=== PATIENT | male | born 2000 | race African-American/Black ===

== ENCOUNTER 2019-02-07 00:40 | Emergency (ER) | payer OTHER ==
[2019-02-07] MEDS ORDERED: DIPHTH,PERTUSS(ACELL),TET 0.5 ML DISP.SYRIN IM ONE ×2 (00:54→01:18)
[2019-02-07] MEDS ORDERED: AMOX TR/POT CLAV 875MG/125MG TABLETS (FP) PO ONE (01:04)
[2019-02-07 01:09] VITALS: BP 127/78; PULSE 95; TEMP 98.4; BMI 31.5
[2019-02-07] MEDS ORDERED: AMPICILLIN NA/SULBACTAM NA 3 GM in SODIUM CHLORIDE 100 ML IVPB ONE (01:19)
[2019-02-07] MEDS ORDERED: NAPROXEN 500 MG TABLET (FP) PO ONE (01:34)
[2019-02-07] MEDS ORDERED: NAPROXEN 500 MG TABLET (FP) ONE (01:36)
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
== END 2019-02-07 02:22 | disposition home or self-care (01) ==
LOC: JER 00:40
PROC: 3E0234Z Introduction of Serum, Toxoid and Vaccine into Muscle, Percutaneous Approach (ICD-10-PCS; principal; 2019-02-07)
DX: S61.451A Open bite of right hand, initial encounter (principal); W50.3XXA Accidental bite by another person, initial encounter; Y93.89 Activity, other specified; Y92.198 Other place in other specified residential institution as the place of occurrence of the external cause; Y99.0 Civilian activity done for income or pay
CPT/HCPCS: 73130-TC-RT-FY; 90715; 99281-25

== ENCOUNTER 2019-11-19 15:39 | Emergency (ER) | payer BC, OTHER ==
[2019-11-19 15:58] VITALS: BP 137/78; PULSE 79; TEMP 98.9; BMI 31.3
[2019-11-19] MEDS ORDERED: MAG HYDROX/AL HYDROX/SIMETH 30 ML UNIT-DOSE CUP PO ONE (16:27)
[2019-11-19] MEDS ORDERED: FAMOTIDINE 20 MG/50 ML IVPB 20 MG/50 ML MG IVPB ONE ×2 (16:27→16:52)
[2019-11-19] MEDS ORDERED: METOCLOPRAMIDE HCL INJECTION 10 MG/2 ML VIAL IVPB ONE (16:27)
[2019-11-19] MEDS ORDERED: LACTATED RINGERS SOLUTION 1000 ML INFUS.BAG IV ONE (16:28)
--- NOTE | 2019-11-19 16:34 | PDOC ---
History of Present Illness - General Chief Complaint: Pain Stated Complaint: ABD PAIN/VOMITING Time Seen by Provider: 11/19/19 16:14 History Source: Patient Exam Limitations: Clinical Condition - History of Present Illness Initial Comments: 11/19/19 16:29 Patient with no significant past medical history present with complaint of 3-day history of epigastric pain, nausea, vomiting and diarrhea status post eating fast food 3 days ago. Patient reported now having suprapubic abdominal pain with less pain to epigastric region. Denies bloody stool or mucus in stool. Patient has not taken anything for symptoms. Denies fever, chills, body aches, weakness, chest pain, shortness of breath. Denies any other symptoms Is this a multiple visit Asthma Patient?: No Timing/Duration: other (3 days) Past History - Medical History Allergies/Adverse Reactions: Allergies Allergy/AdvReac Type Severity Reaction Status Date / Time No Known Allergies Allergy Verified 02/07/19 00:56 Home Medications: Ambulatory Orders Albuterol Sulfate Inhaler - [Ventolin HFA Inhaler -] 2 inh PO Q6H #1 inh 02/26/15 Amox-Tr/K Cl [Augmentin - 250Mg Tablet] 1 tab PO BID 5 Days #10 tablet 02/07/19 Naproxen [Naprosyn -] 500 mg PO BID PRN 7 Days #14 tablet 02/07/19 Famotidine [Pepcid -] 40 mg PO DAILY #7 tablet 11/19/19 Mag Hydrox/Aluminum Hyd/Simeth [Maalox Advanced Suspension] 30 ml PO Q8H PRN #1 bottle 11/19/19 Ondansetron [Zofran *Odt*] 4 mg SL Q8H PRN #12 od.tablet 11/19/19 COPD: No - Immunization History Immunization Up to Date: Yes - Psycho-Social/Smoking History Smoking Status: No Smoking History: Never smoked Number of Cigarettes Smoked Daily: 0 Information on smoking cessation initiated: No - Substance Abuse Hx (Audit-C & DAST Scrn) How often the patient has a drink containing alcohol: Never Score: In Men: 4 or > Positive; In Women: 3 or > Positive: 0 Screen Result (Pos requires Nsg. Audit-10AR): Negative In the last yr the pt used illegal drug/Rx for NonMed reason: No Score: Yes response is considered Positive: 0 Screen Result (Positive result requires Nsg. DAST-10): Negative Review of Systems - Review of Systems Able to Perform ROS?: Yes Is the patient limited Swiss proficient: No Constitutional: No: Chills, Fever, Malaise HEENTM: No: Symptoms Reported, See HPI, Eye Pain, Blurred Vision, Tearing, Recent change in vision, Double Vision, Cataracts, Ear Pain, Ocular Prothesis, Ear Discharge, Nose Pain, Nose Congestion, Tinnitus, Nose Bleeding, Hearing Loss, Throat Pain, Throat Swelling, Mouth Pain, Dental Problems, Difficulty Swallowing, Mouth Swelling, Other Respiratory: No: Symptoms reported, See HPI, Cough, Orthopnea, Shortness of Breath, SOB with Exertion, SOB at Rest, Stridor, Wheezing, Productive cough, Hemoptysis, Other Cardiac (ROS): No: Symptoms Reported, See HPI, Chest Pain, Edema, Irregular Heart Rate, Lightheadedness, Palpitations, Syncope, Chest Tightness, Other ABD/GI: Yes: Symptoms Reported, See HPI, Diarrhea, Nausea, Vomiting, Abdominal cramping (epigastric and suprapubic pain). No: Abdominal Distended, Abd. Pain w/ defecation, Blood Streaked Bowels, Constipated, Difficulty Swallowing, Poor Appetite, Rectal Bleeding, Indigestion : No: Symptoms Reported, See HPI Musculoskeletal: No: Back Pain All Other Systems: Reviewed and Negative *Physical Exam - Vital Signs Last Vital Signs Temp Pulse Resp BP Pulse Ox 98.9 F 79 16 137/78 99 11/19/19 15:51 11/19/19 15:51 11/19/19 15:51 11/19/19 15:51 11/19/19 15:51 - Physical Exam 11/19/19 16:35 GENERAL: Well developed, well nourished. Awake and alert. No acute distress. HEENT: Normocephalic, atraumatic. PERRLA, EOMI. No conjunctival pallor. Sclera are non-icteric. Moist mucous membranes. Oropharynx is clear. NECK: Supple. Full ROM. CARDIOVASCULAR: Regular rate and rhythm. No murmurs, rubs, or gallops. Distal pulses are 2+ and symmetric. PULMONARY: No evidence of respiratory distress. Lungs clear to auscultation bilaterally. No wheezing, rales or rhonchi. ABDOMINAL: Soft. Mild tenderness to palpation to epigastric and suprapubic region. Non- distended. No rebound or guarding. No organomegaly. Normoactive bowel sounds. MUSCULOSKELETAL Normal range of motion at all joints. SKIN: Warm and dry. Normal capillary refill. No rashes. No jaundice. No cyanosis NEUROLOGICAL: Alert, awake, appropriate. Gait is normal without ataxia. PSYCHIATRIC: Cooperative. Good eye contact. Appropriate mood General Appearance: Yes: Nourished, Appropriately Dressed. No: Apparent Distress ED Treatment Course - LABORATORY CBC & Chemistry Diagram: 11/19/19 17:04 11/19/19 17:04 Medical Decision Making - Medical Decision Making 11/19/19 16:31 Patient with no significant past medical history present with complaint of 3-day history of epigastric pain, nausea, vomiting and diarrhea status post eating fast food 3 days ago. Patient reported now having suprapubic abdominal pain with less pain to epigastric region. Denies bloody stool or mucus in stool. Patient has not taken anything for symptoms. Denies fever, chills, body aches, weakness, chest pain, shortness of breath. Denies any other symptoms Exam significant for mild epigastric and suprapubic tenderness without guarding or rebound otherwise unremarkable exam. Normal cardio and lung exam. Patient afebrile in no acute distress. Patient symptoms likely gastroenteritis versus food poisoning versus cystitis. CBC, CMP and lipase lab ordered. UA and urine culture lab ordered. IV hydration with lactated Ringer's 1 L ordered. Pepcid 20 mg IV, Reglan 10 mg IV and Maalox 30 mL p.o. ordered for abdominal pain. Reassess after labs and imaging. 11/19/19 17:54 CBC lab shows no acute abnormality. UA within normal limit. Chemistry labs are pending. Patient report improvement of pain. Patient symptoms likely gastroenteritis and will be discharged home on Pepcid and Maalox if negative chemistry 11/19/19 18:23 Chemistry lab shows no acute abnormality. Patient asymptomatic now and stable for discharge on Pepcid 40 mg daily for 7 days, Maalox PRN for abdominal discomfort and Zofran PRN for nausea and vomiting with advised to increase fluid intake with GI follow-up as needed Discharge - Discharge Information Problems reviewed: Yes Clinical Impression/Diagnosis: Gastroenteritis, Abdominal pain in male Condition: Stable Disposition: HOME - Admission No - Additional Discharge Information Prescriptions: Mag Hydrox/Aluminum Hyd/Simeth [Maalox Advanced Suspension] 30 ml PO Q8H PRN #1 bottle PRN Reason: abdominal discomfort Famotidine [Pepcid -] 40 mg PO DAILY #7 tablet Ondansetron [Zofran *Odt*] 4 mg SL Q8H PRN #12 od.tablet PRN Reason: nausea - Follow up/Referral Referrals: Elfego Montague MD [Staff Physician] - - Patient Discharge Instructions Patient Printed Discharge Instructions: DI for Viral Gastroenteritis -- Adult Additional Instructions: Your blood work was normal. Your urine lab was normal as well. Your pain is likely from diarrhea from viral gastroenteritis. Take prescribed medication as prescribed for diarrhea abdominal pain. Increase fluid intake. Follow-up with your GI doctor if no improvement in 3 days - Post Discharge Activity
[2019-11-19] MEDS ORDERED: METOCLOPRAMIDE HCL INJECTION 10 MG/2 ML VIAL ONE (16:52)
[2019-11-19] MEDS ORDERED: MAG HYDROX/AL HYDROX/SIMETH 30 ML UNIT-DOSE CUP ONE ×2 (16:52→17:07)
[2019-11-19 17:24] LABS: BASO % 0.9 % (0-2.0); EOS % 2.3 % (0-4.5); HEMATOCRIT 45.1 % (35.4-49); HEMOGLOBIN 14.9 GM/dL (11.7-16.9); LYMPH % 39.8 % (8-40); MCH 25.9 pg (25.7-33.7); MEAN CELL VOLUME 78.5 fl (80-96); MEAN PLT VOLUME 8.3 fl (7.5-11.1); MONO % 8.6 % (3.8-10.2); NEUT % 48.4 % (42.8-82.8); PLATELET COUNT 264 K/MM3 (134-434); RBC 5.74 M/mm3 (4.00-5.60); RDW 14.7 % (11.9-15.9); WHITE BLOOD COUNT 5.1 K/mm3 (4.0-10.0)
[2019-11-19 17:26] LABS: URINE APPEARANCE CLEAR; URINE BILIRUBIN NEGATIVE (NEGATIVE); URINE COLOR YELLOW; URINE GLUCOSE (UA) NEGATIVE (NEGATIVE); URINE KETONE NEGATIVE (NEGATIVE); URINE LEUK ESTERASE NEGATIVE (NEGATIVE); URINE NITRITE NEGATIVE (NEGATIVE); URINE PROTEIN NEGATIVE (NEGATIVE)
--- NOTE | 2019-11-19 17:53 | PDOC ---
*Physical Exam - Vital Signs Last Vital Signs Temp Pulse Resp BP Pulse Ox 98.9 F 79 16 137/78 99 11/19/19 15:51 11/19/19 15:51 11/19/19 15:51 11/19/19 15:51 11/19/19 15:51 - Physical Exam 11/19/19 17:52 The patient was examined by [RAN Talbert] under my direct supervision. I personally evaluated the patient. I concur with the above findings and the plan of care. ED Treatment Course - LABORATORY CBC & Chemistry Diagram: 11/19/19 17:04 11/19/19 17:04 - ADDITIONAL ORDERS Additional order review: Laboratory Results 11/19/19 17:04 Urine Color Yellow Urine Appearance Clear Urine pH 7.0 Ur Specific [place] 1.007 L Urine Protein Negative Urine Glucose (UA) Negative Urine Ketones Negative Urine Blood Negative Urine Nitrite Negative Urine Bilirubin Negative Urine Urobilinogen 1.0 Ur Leukocyte Esterase Negative 11/19/19 17:04 RBC 5.74 H MCV 78.5 L MCHC 33.0 RDW 14.7 MPV 8.3 Neutrophils % 48.4 Lymphocytes % 39.8 Monocytes % 8.6 Eosinophils % 2.3 Basophils % 0.9 - Medications Given in the ED: ED Medications Discontinued Medications Generic Name Dose Route Start Last Admin Trade Name Ericka PRN Reason Stop Dose Admin Al Hydroxide/Mg Hydroxide 30 ml 11/19/19 16:27 11/19/19 17:11 Mylanta Oral Suspension - PO 11/19/19 16:28 30 ml ONCE ONE Administration Famotidine/Sodium Chloride 20 mg in 50 mls @ 100 mls/hr 11/19/19 16:27 11/19/19 17:13 Pepcid 20 Mg Premixed Ivpb - IVPB 11/19/19 16:56 100 mls/hr ONCE ONE Administration Lactated Ringer's 1,000 ml 11/19/19 16:28 11/19/19 17:13 Lactated Ringers Solution IV 11/19/19 16:29 1,000 ml ONCE ONE Administration Metoclopramide HCl 10 mg 11/19/19 16:27 11/19/19 17:11 Reglan Injection - IVPB 11/19/19 16:28 10 mg ONCE ONE Administration Discharge - Discharge Information Problems reviewed: Yes Clinical Impression/Diagnosis: Gastroenteritis, Abdominal pain in male Condition: Stable Disposition: HOME - Additional Discharge Information Prescriptions: Mag Hydrox/Aluminum Hyd/Simeth [Maalox Advanced Suspension] 30 ml PO Q8H PRN #1 bottle PRN Reason: abdominal discomfort Famotidine [Pepcid -] 40 mg PO DAILY #7 tablet Ondansetron [Zofran *Odt*] 4 mg SL Q8H PRN #12 od.tablet PRN Reason: nausea - Follow up/Referral Referrals: Elfego Montague MD [Staff Physician] - - Patient Discharge Instructions Patient Printed Discharge Instructions: DI for Viral Gastroenteritis -- Adult Additional Instructions: Your blood work was normal. Your urine lab was normal as well. Your pain is likely from diarrhea from viral gastroenteritis. Take prescribed medication as prescribed for diarrhea abdominal pain. Increase fluid intake. Follow-up with your GI doctor if no improvement in 3 days - Post Discharge Activity
[2019-11-19 18:04] LABS: ALBUMIN 4.4 g/dl (3.4-5.0); BILIRUBIN,TOTAL 0.8 mg/dL (0.2-1); BLOOD UREA NITROGEN 8.5 mg/dL (7-18); CALCIUM 9.3 mg/dL (8.5-10.1); POTASSIUM 5.6 mmol/L (3.5-5.1); TOT PROT 7.8 g/dl (6.4-8.2)
== END 2019-11-19 18:33 | disposition home or self-care (01) ==
LOC: JER 15:39
PROC: 3E033GC Introduction of Other Therapeutic Substance into Peripheral Vein, Percutaneous Approach (ICD-10-PCS; principal; 2019-11-19)
DX: K52.9 Noninfective gastroenteritis and colitis, unspecified (principal)
CPT/HCPCS: 36415; 80053; 81003; 83690; 85025; 87086; 99284-25

== ENCOUNTER 2020-05-15 18:14 | Emergency (ER) | payer OTHER, BC ==
[2020-05-15 18:48] VITALS: BMI 30.8
[2020-05-15] MEDS ORDERED: ONDANSETRON *ODT* 4 MG TABLET SL ONE (20:09)
[2020-05-15] MEDS ORDERED: ONDANSETRON *ODT* 4 MG TABLET ONE (20:29)
[2020-05-15] MEDS ORDERED: SODIUM CHLORIDE 1,000 ML IV STA (20:34)
[2020-05-15 21:50] LABS: URINE APPEARANCE Error; URINE BILIRUBIN NEGATIVE (NEGATIVE); URINE COLOR YELLOW; URINE GLUCOSE (UA) NEGATIVE (NEGATIVE); URINE KETONE TRACE (NEGATIVE); URINE LEUK ESTERASE NEGATIVE (NEGATIVE); URINE NITRITE NEGATIVE (NEGATIVE); URINE PROTEIN NEGATIVE (NEGATIVE); URINE UROBILINOGEN 0.2 mg/dL (0.2-1.0)
[2020-05-15 22:37] LABS: BASO % 0.5 % (0-2.0); EOS % 1.6 % (0-4.5); HEMATOCRIT 45.1 % (35.4-49); HEMOGLOBIN 14.9 GM/dL (11.7-16.9); LYMPH % 41.8 % (8-40); MCH 26.1 pg (25.7-33.7); MEAN CELL VOLUME 79.2 fl (80-96); MEAN PLT VOLUME 8.5 fl (7.5-11.1); MONO % 7.1 % (3.8-10.2); PLATELET COUNT 217 K/MM3 (134-434); RBC 5.69 M/mm3 (4.00-5.60); RDW 14.4 % (11.9-15.9); WHITE BLOOD COUNT 4.9 K/mm3 (4.0-10.0)
[2020-05-15 23:21] LABS: POTASSIUM 3.7 mmol/L (3.5-5.1)
[2020-05-15 23:23] LABS: ALBUMIN 4.6 g/dl (3.4-5.0); BLOOD UREA NITROGEN 9.8 mg/dL (7-18); CALCIUM 9.1 mg/dL (8.5-10.1)
[2020-05-15 23:28] LABS: BILIRUBIN,TOTAL 0.7 mg/dL (0.2-1); TOT PROT 7.6 g/dl (6.4-8.2)
[2020-05-15] MEDS ORDERED: ACETAMINOPHEN 1000 MG/100 ML VIAL (NON FORMULARY) IVPB ONE (23:28)
[2020-05-15] MEDS ORDERED: ACETAMINOPHEN INJECTION 100 ML IVPB ONE (23:37)
[2020-05-16 00:02] LABS: HIV INTERPRETATION NEGATIVE (NEGATIVE)
[2020-05-16 03:04] VITALS: BP 113/60; PULSE 71; TEMP 98.4
== END 2020-05-16 01:40 | disposition home or self-care (01) ==
LOC: JER 18:14
PROC: 3E0333Z Introduction of Anti-inflammatory into Peripheral Vein, Percutaneous Approach (ICD-10-PCS; principal; 2020-05-15)
PROC: 3E0337Z Introduction of Electrolytic and Water Balance Substance into Peripheral Vein, Percutaneous Approach (ICD-10-PCS; 2020-05-15)
DX: K52.9 Noninfective gastroenteritis and colitis, unspecified (principal); R10.9 Unspecified abdominal pain
CPT/HCPCS: 36415; 80053; 81003; 83690; 85025; 87045; 87046; 87186; 87389; 99284-25; J0131